=== PATIENT | female | born 1970 | race Caucasian/White ===

== ENCOUNTER 2018-10-25 12:34 | Emergency (ER) | payer BC, OTHER ==
[~2018-10-25] VITALS: Ht 175.3 cm; Wt 81.6 kg
--- NOTE | 2018-10-25 12:43 | NUR ---
PT TO ER3. BEDSIDE MONITOR ON. PT STATES SHE STARTED HAVING MIGRAINE THIS AM. TOOK IMITREX, AND PHENERGAN X2 WITHOUT RELIEF. REPORTED TO DR. FREEMAN.
[2018-10-25 12:56] VITALS: BP 126/80
--- NOTE | 2018-10-25 12:59 | ER.PDOC ---
General Chief Complaint: Requesting Medical Care Stated Complaint: MIGRAINE Time seen by MD: 13:00 Source: patient Exam Limitations: no limitations History of Present Illness Timing/Duration: 24 hours Severity/Quality: moderate, constant, pressure Prior Headaches/Recent Trauma: chronic headaches, occasional headaches Associated Symptoms: nausea/vomiting, sensitivity to light Modifying Factors: improves with immobilization, improves with medication, improves with rest Prior symptoms/Treatment: Similar symptoms previous Allergies: Coded Allergies: Isometheptene Mucate (Verified Allergy, 09/25/13) acetaminophen (Verified Allergy, 09/25/13) butalbital (Verified Allergy, 09/25/13) butorphanol tartrate (Verified Allergy, 09/25/13) caffeine (Verified Allergy, 09/25/13) dichloralphenazone (Verified Allergy, 09/25/13) Past Medical History Surgical History: cholecystectomy Family History Significant Family History: no pertinent family hx Social History Smoking: non-smoker Alcohol Use: none Drug Use: none Reviewed Nursing Reviewed: Vital Signs, Abn. Noted Review of Systems All Other Systems: Reviewed and Negative Physical Exam General Appearance: No Apparent Distress, WD/WN Head/Eyes: eyes nml inspection, no facial swelling, no nystagmus, PERRL ENT: nml ENT inspection, pharynx nml Neck: nml inspection, Supple Cardiovascular: Normal Peripheral Pulses, Regular Rate, Rhythm, No Edema, No Gallop, No JVD, No Murmur Respiratory: chest non-tender, lungs clear, normal breath sounds, no respiratory distress, no accessory muscle use Gastrointestinal: Normal Bowel Sounds, No Organomegaly, No Pulsatile Mass, Non Tender, Soft Back: Normal Inspection, No CVA Tenderness, No Vertebral Tenderness Extremities: Normal Range of Motion, Non-Tender, Normal Inspection, No Pedal Edema, No Calf Tenderness, Normal Capillary Refill Psychiatric: Alert, Oriented x 3 Cranial Nerves: Normal Hearing, Normal Speech, PERRL Coordination/Gait: Normal Finger to Nose, Normal Gait Motor/Sensory: No Motor Deficit, No Sensory Deficit, No Pronator Drift, Negative Babinski's Sign Skin: Warm/Dry, Normal Color Departure Time of Disposition: 14:00 Disposition: 01 HOME, SELF-CARE Impression: Primary Impression: Migraine Condition: Improved Referrals: PCP,UNKNOWN (PCP) PRIMARY CARE PROVIDER Duration or Time Spent with Pa: 30 MIN JOSE FREEMAN MD Oct 25, 2018 12:59
[2018-10-25] MEDS ORDERED: ZOFRAN ODT ONE (13:00)
[2018-10-25] MEDS ORDERED: STADOL ONE (13:01)
[2018-10-25] MEDS ORDERED: ZOFRAN ODT SL STA (13:10)
[2018-10-25] MEDS ORDERED: STADOL IM STA (13:10)
[2018-10-25 13:40] VITALS: BP 126/80
== END 2018-10-25 13:38 | disposition home or self-care (01) ==
LOC: ER 12:34
DX: G43.909 Migraine, unspecified, not intractable, without status migrainosus (principal); Z88.6 Allergy status to analgesic agent; Z88.8 Allergy status to other drugs, medicaments and biological substances; Z91.018 Allergy to other foods; Z90.49 Acquired absence of other specified parts of digestive tract
CPT/HCPCS: 96372; 99283; Q0162; J0585